=== PATIENT | male | born 1935 | race Caucasian/White ===

== ENCOUNTER 2017-04-14 08:18 | Emergency (ER) | payer OTHER, MEDICARE ==
[~2017-04-14] VITALS: Ht 182.9 cm; Wt 88.5 kg
--- NOTE | 2017-04-14 08:59 | ED HAND/WRIST INJURY COMPLAINT ---
History of Present Illness General Chief Complaint: General Adult Stated Complaint: INFECTED THUMB Source: patient, old records Exam Limitations: no limitations Vital Signs & Intake/Output Vital Signs & Intake/Output Vital Signs Date Time Temp Pulse Resp B/P B/P Pulse O2 O2 Flow FiO2 Mean Ox Delivery Rate 04/14 1047 97.2 72 20 124/80 95 Room Air 04/14 0831 96.8 70 20 121/76 95 Room Air Allergies Coded Allergies: Sulfa (Sulfonamide Antibiotics) (NAUSEA 04/14/17) Reconcile Medications Allopurinol 300 MG TABLET 1 TAB PO DAILY GOUT (Reported) Amlodipine Besylate 5 MG TABLET 1 TAB PO DAILY HEART (Reported) Aspirin (Aspirin*) 81 MG TAB.CHEW 1 TAB PO DAILY HEART HEALTH (Reported) Cephalexin (Keflex) 500 MG CAPSULE 1 CAP PO TID cellulitis Cyanocobalamin (Vitamin B-12) 1,000 MCG TABLET 1 TAB PO DAILY VITAMIN SUPPORT (Reported) Glutamine (L-Glutamine) 500 MG CAPSULE 1 CAP PO BID UNKNOWN (Reported) Ibuprofen 600 MG TABLET 1 TAB PO Q6PRN PRN pain with food Magnesium Oxide (Magnesium) 400 MG CAPSULE 1 CAP PO DAILY SUPPLEMENT ( Reported) Metoprolol Succinate 25 MG TAB 1 TAB PO DAILY HEART (Reported) Pravastatin Sodium 40 MG TABLET 1 TAB PO DAILY CHOLESTREROL (Reported) Pregabalin (Lyrica) 50 MG CAPSULE 1 CAP PO TID PAIN (Reported) Psyllium Husk (Metamucil) 3.4 GRAM/5.4 GRAM POWDER 1 TSP PO DAILY GI ( Reported) Ruxolitinib Phosphate (Jakafi) 5 MG TABLET 2 TAB PO BID BONE MARROW (Reported ) Triage Note: C/O PAIN, REDNESS AND SWELLING TO R THUMB X 2 DAYS, OCCURRED AFTER CUTTING HEDGES, STATES HE REMOVED A THORN FROM THUMB. Triage Nurses Notes Reviewed? yes Occurred: 2 days Duration: day(s):, constant, continues in ED, getting worse Timing: recent history Injury Environment: home Severity: moderate Pain/Injury Location: Right: 1st finger. Context: thorn Method of Injury: puncture wound Modifying Factors: Improves With: immobilization. Worsens With: movement. Associated Symptoms: swelling, redness, GCS 15 since, stiffness HPI: 2 days prior to admission patient was trimming bushes and got a thorn stuck in his right thumb. He removed the thorn. Since this time he has had increasing redness and swelling to his thumb. He denies fever chills nausea vomiting diarrhea abdominal pain chest pain shortness breath headache dysuria bleeding. He is RHD. Past History Travel History Traveled to [place] past 21 day No Medical History Any Pertinent Medical History? see below for history Neurological: peripheral neuropathy Blood Disorders: POLYCYTHEMIA VERA Surgical History Surgical History: non-contributory Psychosocial History What is your primary language Citizen Of The [place] Tobacco Use: Never used ETOH Use: denies use Family History Hx Contributory? No Review of Systems Review of Systems Constitutional: Reports: no symptoms. EENTM: Reports: no symptoms. Respiratory: Reports: no symptoms. Cardiovascular: Reports: no symptoms. GI: Reports: no symptoms. Genitourinary: Reports: no symptoms. Musculoskeletal: Reports: see HPI, joint pain, joint swelling. Skin: Reports: see HPI, dryness, rash. Neurological/Psychological: Reports: no symptoms. Hematologic/Endocrine: Reports: no symptoms. Immunologic/Allergic: Reports: no symptoms. All Other Systems: Reviewed and Negative Physical Exam Physical Exam General Appearance: well developed/nourished, alert, awake, anxious, mild distress Head: atraumatic, normal appearance Eyes: Bilateral: normal appearance, PERRL, EOMI. Ears, Nose, Throat: normal pharynx, normal ENT inspection, hearing grossly normal Neck: normal inspection, supple Cardiovascular/Respiratory: normal breath sounds, regular rate/rhythm Back: normal inspection, normal range of motion Shoulder Left: normal range of motion, normal inspection Shoulder Right: normal range of motion, normal inspection Elbow Left: normal range of motion, normal inspection Elbow Right: normal range of motion, normal inspection Forearm Left: normal range of motion, normal inspection Forearm Right: normal range of motion, normal inspection Wrist Left: normal range of motion, normal inspection Wrist Right: normal range of motion, normal inspection Hand Left: normal inspection, normal range of motion Hand Right: infection, limited range of motion, swelling, tender, 1st finger Reflexes: 2+: bicep (R), bicep (L). Neurologic/Tendon: normal sensation, normal motor functions, normal tendon functions Skin: intact, normal color, warm/dry Lymphatic: no anterior cervical opal Progress Differential Diagnosis: abscess, cellulitis Plan of Care: Orders Procedure Date/time Status BLOOD CULTURE 04/14 844 Active COMPREHENSIVE METABOLIC PANEL 06/14 0844 Active CBC WITHOUT DIFFERENTIAL 04/14 844 Complete Laboratory Tests 04/14/1715: CBC w Diff NO MAN DIFF REQ, RBC 4.56 L, MCV 89.4, MCH 29.8, RDW 18.6 H, MPV 9.2, Gran % 77.2 H, Lymphocytes % 9.9 L, Monocytes % 11.1 H, Eosinophils % 1.5, Basophils % 0.3, Absolute Granulocytes 6.6 H, Absolute Lymphocytes 0.8 L, Absolute Monocytes 0.9 H, Absolute Eosinophils 0.1, Absolute Basophils 0, PUBS MCHC 33.3 Microbiology 04/14 924 BLOOD: Blood Culture - RECD 04/14 915 BLOOD: Blood Culture - RECD Diagnostic Imaging: Viewed by Me: Radiology Read. Discussed w/RAD: Radiology Read. Radiology Impression: no acute abnormality, no fracture, no dislocation, no foreign body seen Departure Departure Time of Disposition: 1021 Disposition: HOME OR SELF CARE Condition: Stable Clinical Impression Primary Impression: Cellulitis of right thumb Referrals: ISRAEL DAS,FRED Call for plastic surgery follow up RAISA DAS,GRETEL Rainey (PCP/Family) Departure Forms: Customer Survey General Discharge Information Prescriptions: Current Visit Scripts Cephalexin (Keflex) 1 CAP PO TID #30 CAP Ibuprofen 1 TAB PO Q6PRN PRN pain #50 TAB with food
--- NOTE | 2017-04-14 09:13 | RADIOLOGY REPORT ---
EXAMINATION: XR FINGER, RIGHT CLINICAL INFORMATION: Right thumb cellulitis. Question foreign body. COMPARISON: None TECHNIQUE: Three views of the right hand first digit. FINDINGS: First digit soft tissue swelling is noted. No fracture or dislocation. Mild degenerative changes of the first carpometacarpal joint with joint space narrowing. Joint spaces are otherwise maintained. No erosion. No radiopaque foreign body. IMPRESSION: First digit soft tissue swelling. No radiopaque foreign body.
[2017-04-14 09:24] LABS: ABSOLUTE BASOPHIL COUNT 0 /CUMM (0.0-0.2); ABSOLUTE EOSINOPHIL COUNT 0.1 /CUMM (0.0-0.7); ABSOLUTE MONOCYTE COUNT 0.9 /CUMM (0.10-0.60); BASOPHIL % 0.3 % (0.0-2.0); GRANULOCYTE % 77.2 % (42.2-75.2); HEMATOCRIT 40.8 % (42-52); RED BLOOD CELL CT 4.56 /CUMM (4.70-6.10)
[2017-04-14 09:50] LABS: ABSOLUTE GRANULOCYTE CT 6.6 /CUMM (1.4-6.5); ABSOLUTE LYMPH COUNT 0.8 /CUMM (1.2-3.4); EOSINOPHIL % 1.5 % (0-5); MEAN CORPUSCULAR HGB 29.8 PG (27.0-31.0); MEAN CORPUSCULAR HGB CONC 33.3 G/DL (33.0-37.0); MEAN CORPUSCULAR VOLUME 89.4 FL (80.0-94.0); MEAN PLATELET VOLUME 9.2 FL (7.4-10.4); RBC DISTRIBUTION WIDTH 18.6 % (11.5-14.5); WHITE BLOOD CELL COUNT 8.5 /CUMM (4.8-10.8)
[2017-04-14 09:56] LABS: PLATELET COUNT 156 /CUMM (130-400)
[2017-04-14] MEDS ORDERED: PRAVASTATIN SOD40 M2 PO (09:58)
[2017-04-14] MEDS ORDERED: ALLOPURINOL300 M1 PO (09:58)
[2017-04-14] MEDS ORDERED: METOPROLOL SUCC25 M1 PO (09:58)
[2017-04-14] MEDS ORDERED: JAKAFI PO (09:58)
[2017-04-14] MEDS ORDERED: METAMUCIL660 GM PO (09:59)
[2017-04-14] MEDS ORDERED: L-GLUTAMINE500 M1 PO (09:59)
[2017-04-14] MEDS ORDERED: VITAMIN B-121000 MC3 PO (10:00)
[2017-04-14] MEDS ORDERED: MAGNESIUM400 M1 PO (10:00)
[2017-04-14] MEDS ORDERED: AMLODIPINE BESYL5 M1 PO (10:01)
[2017-04-14] MEDS ORDERED: LYRICA50 M1 PO (10:01)
[2017-04-14] MEDS ORDERED: ASPIRIN81 M4 PO (10:01)
[2017-04-14] MEDS ORDERED: KEFLEX500 M1 PO (10:26)
[2017-04-14] MEDS ORDERED: IBUPROFEN600 M1 PO (10:26)
[2017-04-14 10:47] VITALS: BP 124/80
== END 2017-04-14 10:49 ==
LOC: ERH 08:18
PROVIDERS: Emergency Medicine
DX: L03.011 Cellulitis of right finger (principal)
CPT/HCPCS: 73140-RT; 87040; 96365; 96375; J1885

== ENCOUNTER 2017-11-25 14:16 | Inpatient (IN) | payer OTHER, MEDICARE ==
[~2017-11-25] VITALS: Ht 182.9 cm; Wt 84.4 kg
[~2017-11-25 14:16] MED LIST: ALLOPURINOL300 M1 PO; AMLODIPINE BESYL5 M1 PO; ASPIRIN81 M4 PO; IBUPROFEN600 M1 PO; JAKAFI PO; KEFLEX500 M1 PO; L-GLUTAMINE500 M1 PO; LYRICA50 M1 PO; MAGNESIUM400 M1 PO; METAMUCIL660 GM PO; METOPROLOL SUCC25 M1 PO; PRAVASTATIN SOD40 M2 PO; VITAMIN B-121000 MC3 PO
[2017-11-25] MEDS ORDERED: ALPHA LIPOIC A200 M1 PO (17:54)
[2017-11-25] MEDS ORDERED: VITAMIN B COMP1 EACH PO (17:55)
[2017-11-25] MEDS ORDERED: VITAMIN D31000 UNI2 PO (17:56)
[2017-11-25] MEDS ORDERED: VITAMIN B-121000 MC3 PO (17:59)
--- NOTE | 2017-11-25 18:03 | ED INFLUENZA/URI COMPLAINT ---
History of Present Illness General Chief Complaint: Upper Respiratory Sx/Fever Stated Complaint: URI SENT BY URGENT CARE FOR A INFECTED LUNG Source: patient, family Exam Limitations: no limitations Vital Signs & Intake/Output Vital Signs & Intake/Output Vital Signs Date Time Temp Pulse Resp B/P B/P Pulse O2 O2 Flow FiO2 Mean Ox Delivery Rate 11/25 1916 95 11/25 1852 Nasal Cannula 11/25 1850 99.7 11/25 1840 99.7 81 18 127/71 91 Room Air 11/25 1530 100.5 92 18 105/67 91 Room Air Room Air Allergies Coded Allergies: Sulfa (Sulfonamide Antibiotics) (NAUSEA 04/14/17) duloxetine (URINARY FREQUENCY 11/25/17) Triage Note: PT TO ED WITH C/I URI , COUGH CONGESTION, FEVER AT HOME, WENT TO [facility] HAD CHR SENT TO ED R/O PNEUMONIA. Triage Nurses Notes Reviewed? yes Onset: Gradual Duration: day(s): Timing: multiple episodes today Severity: moderate Prior Episodes/Possible Cause: occassional episodes Associated Symptoms: cough, fever/chills, nasal drainage, sore throat HPI: patient is an 82 y/o male, PMH of polycythemia vera, HTN, HLD, and neuropathy, presenting from urgent care due to possible pneumonia on x-ray. PAtient states he has been coughing since wednesday with worsening sore throat and nasal discharge. the cough is not productive and the nasal discharge is clear and thin. patient had a fever of 101.5 at the urgent care. patient has taken OTC mucinex and robitussin for his symptoms with no relief of symptoms. patient denies chills, muscle aches, CP, SOB, head ache, dizziness, abdominal pain, N/V/ D, and dysuria. (Hussain MOSS,Gee) Reconcile Medications Allopurinol 300 MG TABLET 1 TAB PO DAILY GOUT (Reported) Alpha Lipoic Acid (Unknown Strength) CAPSULE (Unknown Dose) PO TID NEUROPATHY (Reported) Amlodipine Besylate 5 MG TABLET 1 TAB PO DAILY HEART (Reported) Aspirin (Aspirin*) 81 MG TAB.CHEW 1 TAB PO DAILY HEART HEALTH (Reported) Cholecalciferol (Vitamin D3) 1,000 UNIT TABLET 2 TAB PO DAILY SUPPLEMENT ( Reported) Cyanocobalamin (Vitamin B-12) 1,000 MCG TABLET 1 TAB PO DAILY SUPPLEMENT ( Reported) Glutamine (L-Glutamine) (Unknown Strength) CAPSULE (Unknown Dose) PO BID SUPPLEMENT (Reported) Magnesium Oxide (Magnesium) 400 MG CAPSULE 1 CAP PO DAILY SUPPLEMENT ( Reported) Metoprolol Succinate 25 MG TAB 1 TAB PO DAILY HEART (Reported) Pravastatin Sodium 40 MG TABLET 1 TAB PO DAILY CHOLESTREROL (Reported) Pregabalin (Lyrica) 50 MG CAPSULE 1 CAP PO QPM PAIN (Reported) Psyllium Husk (Metamucil) 3.4 GRAM/5.4 GRAM POWDER 1 TSP PO DAILY GI ( Reported) Ruxolitinib Phosphate (Jakafi) 5 MG TABLET 2 TAB PO BID BONE MARROW (Reported ) Vitamin B Complex 1 EACH CAPSULE 1 CAP PO DAILY SUPPLEMENT (Reported) (Franky Venegas DO ([facility])) Past History Travel History Traveled to [place] past 21 day No Medical History Any Pertinent Medical History? none Neurological: peripheral neuropathy EENT: NONE Cardiovascular: NONE Respiratory: NONE Gastrointestinal: NONE Hepatic: NONE Renal: NONE Musculoskeletal: NONE Psychiatric: NONE Endocrine: NONE Blood Disorders: POLYCYTHEMIA VERA Cancer(s): NONE DIRECTOR OF STUDENT AFFAIRS/Reproductive: NONE Surgical History Surgical History: non-contributory Psychosocial History What is your primary language [place] Tobacco Use: Quit >30 days ago ETOH Use: denies use Illicit Drug Use: denies illicit drug use Family History Hx Contributory? No (Gee Lockhart) Review of Systems Review of Systems Constitutional: Reports: no symptoms. EENTM: Reports: nasal congestion, throat pain. Respiratory: Reports: cough. Cardiovascular: Reports: no symptoms. GI: Reports: no symptoms. Genitourinary: Reports: no symptoms. Musculoskeletal: Reports: no symptoms. Skin: Reports: no symptoms. Neurological/Psychological: Reports: no symptoms. Hematologic/Endocrine: Reports: no symptoms. Immunologic/Allergic: Reports: no symptoms. All Other Systems: Reviewed and Negative (Gee Lockhart) Physical Exam Physical Exam General Appearance: well developed/nourished, no apparent distress, alert, awake Head: atraumatic, normal appearance Eyes: Bilateral: normal appearance, PERRL, EOMI. Ears, Nose, Throat: normal ENT inspection, moist mucous membrane, nasal drainage , pharyngeal erythema Neck: normal inspection, supple Respiratory: decreased breath sounds, rhonchi (with cough), desat to 85% upon ambulation Cardiovascular: regular rate/rhythm Peripheral Pulses: 2+ radial (R), 2+ radial (L) Gastrointestinal: soft, non-tender, no organomegaly Extremities: normal inspection, no edema Skin: intact, normal color, warm/dry Core Measures Sepsis Present: No Sepsis Focused Exam Completed? No (Gee Lockhart) Progress Differential Diagnosis: influenza, pneumonia, sinusitis, pharyngitis, pe, mi, bronchitis Plan of Care: Orders Procedure Date/time Status Regular Diet 11/26 B Active LACTIC ACID 11/25 2028 Active OXYGEN SETUP (GEN) 11/25 1948 Active Saline Lock 11/25 1948 Active Admit to inpatient 11/25 1948 Active Vital Signs 11/25 1948 Active Activity/Ambulation 11/25 1948 Active Code Status 11/25 1948 Active RAPID VIRAL INFLUENZA A 11/25 173 Complete BLOOD CULTURE 11/25 172 Active URINALYSIS 11/25 172 Active TROPONIN LEVEL 11/25 172 Complete LACTIC ACID 11/25 172 Complete COMPREHENSIVE METABOLIC PANEL 11/25 172 Complete CBC WITHOUT DIFFERENTIAL 11/25 1728 Complete EKG 11/25 172 Active Laboratory Tests 11/25/17 175: Anion Gap 17 H, Estimated GFR 53 L, BUN/Creatinine Ratio 22.3, Glucose 98, Lactic Acid 1.2, Calcium 9.4, Total Bilirubin 0.7, AST 32, ALT 45, Alkaline Phosphatase 71, Troponin I < 0.01, Total Protein 7.7, Albumin 5.0, Globulin 2.7, Albumin/Globulin Ratio 1.9, CBC w Diff NO MAN DIFF REQ, RBC 4.30 L, MCV 93.8, MCH 30.5, MCHC 32.5 L, RDW 19.5 H, MPV 11.1 H, Gran % 77.2 H, Lymphocytes % 7.7 L, Monocytes % 14.2 H, Eosinophils % 0.9, Basophils % 0, Absolute Granulocytes 6.7 H, Absolute Lymphocytes 0.7 L, Absolute Monocytes 1.2 H, Absolute Eosinophils 0.1, Absolute Basophils 0 Microbiology 11/25 1899 BLOOD: Blood Culture - RECD 11/25 1758 BLOOD: Blood Culture - RECD 11/25 1754 NASOPHARYN: Influenza Virus A & B Rapid Smear - COMP Diagnostic Imaging: Viewed by Me: Radiology Read. Discussed w/RAD: Radiology Read. Radiology Impression: PATIENT: IVORY PALACIOS PRESENT AGE: 82 PATIENT ACCOUNT NO: [id number] : 37 LOCATION: [facility] ORDERING PHYSICIAN: Gee MOSS SERVICE DATE: 11/25/17 EXAM TYPE : RAD - XRY-CHEST XRAY, TWO VIEWS EXAMINATION: CHEST 2 VIEWS CLINICAL INFORMATION: Cough. COMPARISON: 01/21/2012. TECHNIQUE: PA and lateral views of the chest were obtained. FINDINGS: The cardiac silhouette is not enlarged. The mediastinal and hilar contours are unremarkable. There are neither pleural effusions nor pneumothoraces. There is linear atelectasis or scarring at the left lung base. The lungs are mildly hyperinflated. There are no consolidations. The osseous structures are unremarkable. IMPRESSION: Linear atelectasis or scarring at the left lung base. No consolidations. DICTATED BY: Nilson Li MD DATE/TIME DICTATED:11/25/171823 ASSISTANT OFFSET PRESS OPERATOR:ALTON DATE/TIME TRANSCRIBED:11/25/171823 CONFIDENTIAL, DO NOT COPY WITHOUT APPROPRIATE AUTHORIZATION. <Electronically signed in Other Vendor System> SIGNED BY: Nilson Li MD 11/25/171828 Initial ED EKG: normal sinus rhythm, rate (78) (Gee Lockhart) Departure Departure Disposition: STILL A PATIENT Condition: Stable Clinical Impression Primary Impression: Hypoxia Secondary Impressions: Bronchitis Referrals: Javad Worthy MD (PCP/Family) Departure Forms: Customer Survey General Discharge Information Admission Note Spoke With: Candido Diaz MD Documentation of Exam: Documentation of any treatments & extenuating circumstances including Concerns Regarding Discharge (functional status, medication knowledge or non-compliance, living conditions, etc.) that warrant an admission rather than observation: Patient oxygen saturation drops to 85% on room air. No history of COPD. Patient will require IV antibiotics. Supplemental oxygen. IV steroids. Pulmonary consultation potentially. (Gee Lockhart) Admission Note Documentation of Exam: Documentation of any treatments & extenuating circumstances including Concerns Regarding Discharge (functional status, medication knowledge or non-compliance, living conditions, etc.) that warrant an admission rather than observation: PA/SHIP WIRER Co-Sign Statement Statement: ED Attending supervision documentation- [x] I saw and evaluated the patient. I have also reviewed all the pertinent lab results and diagnostic results. I agree with the findings and the plan of care as documented in the PA's/SHIP WIRER's documentation. [] I have reviewed the ED Record and agree with the PA's/SHIP WIRER's documentation. [] Additions or exceptions (if any) to the PAs/SHIP WIRER's note and plan are summarized below: [] (Franky Venegas DO ([facility]))
[2017-11-25 18:17] LABS: ABSOLUTE BASOPHIL COUNT 0 /CUMM (0.0-0.2); ABSOLUTE EOSINOPHIL COUNT 0.1 /CUMM (0.0-0.7); ABSOLUTE GRANULOCYTE CT 6.7 /CUMM (1.4-6.5); ABSOLUTE LYMPH COUNT 0.7 /CUMM (1.2-3.4); ABSOLUTE MONOCYTE COUNT 1.2 /CUMM (0.10-0.60); BASOPHIL % 0 % (0.0-2.0); EOSINOPHIL % 0.9 % (0-5); GRANULOCYTE % 77.2 % (42.2-75.2); HEMATOCRIT 40.4 % (42-52); MEAN CORPUSCULAR HGB 30.5 PG (27.0-31.0); MEAN CORPUSCULAR HGB CONC 32.5 G/DL (33.0-37.0); MEAN CORPUSCULAR VOLUME 93.8 FL (80.0-94.0); MEAN PLATELET VOLUME 11.1 FL (7.4-10.4); PLATELET COUNT 202 /CUMM (130-400); RBC DISTRIBUTION WIDTH 19.5 % (11.5-14.5); WHITE BLOOD CELL COUNT 8.6 /CUMM (4.8-10.8)
--- NOTE | 2017-11-25 18:29 | RADIOLOGY REPORT ---
EXAMINATION: CHEST 2 VIEWS CLINICAL INFORMATION: Cough. COMPARISON: 01/21/2012. TECHNIQUE: PA and lateral views of the chest were obtained. FINDINGS: The cardiac silhouette is not enlarged. The mediastinal and hilar contours are unremarkable. There are neither pleural effusions nor pneumothoraces. There is linear atelectasis or scarring at the left lung base. The lungs are mildly hyperinflated. There are no consolidations. The osseous structures are unremarkable. IMPRESSION: Linear atelectasis or scarring at the left lung base. No consolidations.
--- NOTE | 2017-11-25 20:11 | History & Physical ---
Odessa Cassidy MDm 11/25/172010: General Information and HPI MD Statement: I have seen and personally examined IVORY PALACIOS and documented this H&P. The patient is a 82 year old M who presented with a patient stated chief complaint of [cough]. Source of Information: patient Exam Limitations: no limitations History of Present Illness: Patient is a 82-year-old male with past medical history of hypertension, hyperlipidemia, polycythemia vera, gout and peripheral neuropathy. He is presenting to [facility] ED on 11/25 with complain of ongoing cough since Wednesday. The patient was in usual state of health until Wednesday when he started developing a cough which has been lingering on ever since. The patient reports coughing during the day and night. It's a dry hacking cough without any sputum production. He unable to sleep because of cough. He denies any fevers or chills. He denies any sore throat, postnasal drip, chest pain, or nasal discharge. He also denies any sinus tenderness. He tried [id number] Robitussin for 2 days and later tried Mucinex as well with no relief. Today patient presented to urgent care with these symptoms. He was found to have fever of 101. They did a chest x-ray and send him to [facility] for evaluation of possible pneumonia. Patient denies any sick contacts. He is up to date with flu and pneumonia vaccinations. The patient was diagnosed with polycythemia vera 20 years ago and is being treated with Ruxolitinib Phosphate (Jakafi). Patient underwent InterStim placement on the right sacral nerves S3 for urge incontinence refractory to anticholinergics in 2013 Allergies/Medications Allergies: Coded Allergies: Sulfa (Sulfonamide Antibiotics) (NAUSEA 04/14/17) duloxetine (URINARY FREQUENCY 11/25/17) Home Med list Allopurinol 300 MG TABLET 1 TAB PO DAILY GOUT (Reported) Alpha Lipoic Acid 200 MG TABLET 600 MG PO DAILY NEUROPATHY (Reported) Amlodipine Besylate 5 MG TABLET 1 TAB PO DAILY HEART (Reported) Aspirin (Aspirin*) 81 MG TAB.CHEW 1 TAB PO DAILY HEART HEALTH (Reported) Benzonatate 100 MG CAPSULE 100 MG PO TID PRN cough Chloraseptic (Phenaseptic) 1.4 % SPRAY 2 SPRAY EXT Q2P PRN PAIN Cholecalciferol (Vitamin D3) 1,000 UNIT TABLET 2 TAB PO DAILY SUPPLEMENT ( Reported) Cyanocobalamin (Vitamin B-12) 1,000 MCG TABLET 1 TAB PO DAILY SUPPLEMENT ( Reported) Glutamine (Endari) 5 GRAM POWD.PACK 1 TSP PO BID NEUROPATHY (Reported) Guaifenesin 100 MG/5 ML LIQUID 10 ML PO Q6P PRN COUGH Magnesium Oxide (Magnesium) 400 MG CAPSULE 1 CAP PO DAILY SUPPLEMENT ( Reported) Metoprolol Succinate 25 MG TAB 1 TAB PO DAILY HEART (Reported) Pravastatin Sodium 40 MG TABLET 1 TAB PO DAILY CHOLESTREROL (Reported) Pregabalin (Lyrica) 50 MG CAPSULE 1 CAP PO QPM PAIN (Reported) Psyllium Husk (Metamucil) 3.4 GRAM/5.4 GRAM POWDER 1 TSP PO DAILY GI ( Reported) Ruxolitinib Phosphate (Jakafi) 5 MG TABLET 2 TAB PO BID BONE MARROW (Reported ) Vitamin B Complex 1 EACH CAPSULE 1 CAP PO DAILY SUPPLEMENT (Reported) Compliance With Home Meds: GOOD Past History Travel History Traveled to [place] past 21 day No Medical History Neurological: peripheral neuropathy EENT: NONE Cardiovascular: hypertension, hyperlipidemia Respiratory: NONE Gastrointestinal: NONE Hepatic: NONE Renal: NONE Musculoskeletal: gout Psychiatric: NONE Endocrine: NONE Blood Disorders: POLYCYTHEMIA VERA Cancer(s): NONE HOTBED LEVER OPERATOR/Reproductive: NONE Surgical History Surgical History: hernia repair-inguinal Past Family/Social History Family History Relations & Conditions if any FATHER (Lung cancer). Psychosocial History Where do you live? Home Who Do You Live With? spouse Services at Home: None Primary Language: South Korean Smoking Status: Former Smoker ETOH Use: denies use Illicit Drug Use: denies illicit drug use Functional Ability ADLs Independent: dressing, eating, toileting, bathing. Ambulation: independent IADLs Independent: shopping, housework, finances, food prep, telephone, transportation , medication admin. Review of Systems Review of Systems Constitutional: Reports: see HPI. Denies: fever, weakness. EENTM: Reports: no symptoms. Cardiovascular: Reports: orthopena, palpitations, syncope. Denies: chest pain. Respiratory: Reports: cough. Denies: hemoptysis, orthopnea, short of breath, sputum production, stridor, wheezing. GI: Reports: no symptoms. Genitourinary: Reports: no symptoms. Musculoskeletal: Reports: no symptoms. Exam & Diagnostic Data Last 24 Hrs of Vital Signs/I&O Vital Signs Date Time Temp Pulse Resp B/P B/P Pulse O2 O2 Flow FiO2 Mean Ox Delivery Rate 11/25 2015 99.0 76 18 110/62 95 Nasal 2.0L Cannula 11/25 1916 95 11/25 1852 Nasal Cannula 11/25 1849 99.7 11/25 184 99.7 81 18 127/71 91 Room Air 11/25 1530 100.5 92 18 105/67 91 Room Air Room Air Intake & Output 11/25 1600 11/25 0800 11/25 0000 Intake Total Output Total Balance Patient 186 lb Weight Weight Shelley Lift Measurement Method Physical Exam General Appearance Alert, Oriented X3, Cooperative, Mild Distress Skin No Rashes HEENT Atraumatic, PERRLA, EOMI, Mucous Membr. moist/pink, pharangeal erythema Neck Supple, No LAD Lymphatic Cervical nl Cardiovascular Normal S1, Normal S2, No Murmurs Lungs Clear to Auscultation, Normal Air Movement Abdomen Normal Bowel Sounds, Soft, No Tenderness, No Hepatospenomegaly Neurological Normal Speech Last 24 Hrs of Labs/Juvencio: Laboratory Tests 11/25/172014: Lactic Acid Pending 11/25/171758: Anion Gap 17 H, Estimated GFR 53 L, BUN/Creatinine Ratio 22.3, Glucose 98, Lactic Acid 1.2, Calcium 9.4, Total Bilirubin 0.7, AST 32, ALT 45, Alkaline Phosphatase 71, Troponin I < 0.01, Total Protein 7.7, Albumin 5.0, Globulin 2.7, Albumin/Globulin Ratio 1.9, CBC w Diff NO MAN DIFF REQ, RBC 4.30 L, MCV 93.8, MCH 30.5, MCHC 32.5 L, RDW 19.5 H, MPV 11.1 H, Gran % 77.2 H, Lymphocytes % 7.7 L, Monocytes % 14.2 H, Eosinophils % 0.9, Basophils % 0, Absolute Granulocytes 6.7 H, Absolute Lymphocytes 0.7 L, Absolute Monocytes 1.2 H, Absolute Eosinophils 0.1, Absolute Basophils 0 Microbiology 11/25 1899 BLOOD: Blood Culture - RECD 11/25 1758 BLOOD: Blood Culture - RECD 11/25 1754 NASOPHARYN: Influenza Virus A & B Rapid Smear - COMP Diagnostic Data CXR Results FINDINGS: The cardiac silhouette is not enlarged. The mediastinal and hilar contours are unremarkable.There are neither pleural effusions nor pneumothoraces. There is linear atelectasis or scarring at the left lung base. The lungs are mildly hyperinflated. There are no consolidations. The osseous structures are unremarkable. IMPRESSION: Linear atelectasis or scarring at the left lung base. No consolidations. Assessment/Plan Assessment: Patient is a 82-year-old male with past medical history of hypertension, hyperlipidemia, polycythemia vera, gout and peripheral neuropathy. He is presenting to [facility] ED on 11/25 with complain of ongoing cough since Wednesday. -VS Tmax 100.5, 92, 18, 105/67, 91% on RA -Pertinent labs: WBC count WNL l. BUN 29 creatinine 1.3 (baseline 1.3) AG 17, lactic acid normal rapid flu negative. -Imaging findings dictated above -In ED patient got his oxygen saturation saturation to 87% on ambulation. He received 125 mg of methylprednisone, Tylenol, DuoNeb's, ceftriaxone and azithromycin. The patient is being admitted to general medicine floor and is being treated and evaluated for following conditions #Acute hypoxemic respiratory failure secondary to acute bronchitis. Rule out pneumonia The patient is presenting with cough for almost past 5 days. No sputum production nasal drip or sinus tenderness. He had a fever of 101 at urgent care. He does not have a white count. Patient is on ruxolitinib so he might not build up appropriate response. Pneumonia needs to be ruled out. And patient should be treated for CAP if there is slight suspicion. -Monitor fever and WBC curve -Oxygen supplementation to keep saturation above 92% -TRC/ Duonebs -Oral Steriods rapid 5 day taper -Robitussin for cough -CT chest without contrast to rule out any infiltrate -Follow-up blood cultures -Sputum cultures -Urinary strep and Legionella antigen. -Continue ceftriaxone and azithromycin #Anemia likely 2/2 to Ruxolitinib presenting with H/H stable -Continue to monitorpravastatin, amlodipine, metoprolol, aspirin, allopurinol and Lyrica. #Chronic medical conditions hyperlipidemia, hypertension, gout, neuropathy continue #FC/subcutaneous heparin for DVT prophylaxis/heart healthy diet. As Ranked By This Provider Problem List: 1. Hypoxia 2. Bronchitis Core Measures/Misc (07/18) Acute Coronary Syndrome ACS Diagnosis: No Congestive Heart Failure Congestive Heart Failure Diagnosis No Cerebrovascular Accident CVA/TIA Diagnosis: No VTE (View Protocol) VTE Risk Factors Age>40 No Mechanical VTE Prophylaxis d/t N/A MechProphylax Ordered No VTE Pharm Prophylaxis d/t NA PharmProphylax ordered Sepsis (View protocol) Sepsis Present: No Roberta Loyola 11/25/175: Resident Review Statement Resident Statement: discussed with development intern Other Findings: 82-year-old man with past medical history of hypertension, polycythemia vera diagnosed 20 years ago on Kinase inhibitor (ruxolitinib), neuropathy, hyperlipidemia and gout resented to ER with complaint of nonproductive hacking cough 4 days. He denies any fever, chills, sinus or chest congestion, postnasal drip, runny nose, ear symptoms, sore throat, chest pain or discomfort, nausea, vomiting, abdominal pain, diarrhea or constipation. No urinary symptoms. No dizziness or lightheadedness. He tried Robitussin and Mucinex DM at home without much relief. He went to a walk-in clinic today and had a chest x-ray that was suspicious for pneumonia. He was advised to go to ER for further evaluation and treatment. He denies any sick contacts around. He is a former smoker. Quit 50 years ago. Up-to-date flu and pneumonia vaccine. Vitals on admission: Temperature 100.5, pulse 92, respiratory rate 18, blood pressure 1056/67 and oxygen saturation 91% on room air. Oxygen saturation dropped on ambulation to 83-87% on room air. Pertinent physical exam findings: Pharyngeal erythema. No cervical lymphadenopathy. No sinus tenderness. Lungs clear bilaterally. Pertinent labs: WBC count normal. BUN/creatinine 23/1.3, AG 17, lactic acid normal rapid flu negative. CXR: Linear atelectasis or scarring at the left lung base. No consolidations. CT chest wo IV contrast: Bibasilar linear atelectasis or scarring. No consolidations. 7 mm right lower lobe pulmonary nodule. In ER he was given respiratory treatment, IV steroids, ceftriaxone and azithromycin. Assessment and plan 82-year-old man with past medical history of hypertension, polycythemia vera diagnosed 20 years ago on Kinase inhibitor (ruxolitinib), neuropathy, hyperlipidemia and gout. We will admit him on general medicine floor for possible viral bronchitis. No evidence of PNA on CT chest. We will continue TRC nebs. Continue supplemental oxygen and taper down to keep oxygen saturation more than 92%. Continue azithromycin. Rapid taper of steroids. Continue Robitussin. Follow-up blood cultures. Continue all his home medications. Pain management pathway. DVT prophylaxis. Full code Joe DAS, [facility] 11/25/17 8615: Attending MD Review Statement Attending Statement Attending MD Statement: examined this patient, discuss w/resident/PA/SPREAD CUTTER, agreed w/resident/PA/SPREAD CUTTER, reviewed images, amended to note Attending Assessment/Plan: 82 yo M with h/o polycythemia vera on Jakafi (Ruxolitinib, follows Dr. Min at [place]), HTN, gout, neuropathy, is here with 4-day h/o dry hacking cough, congestion and resultant 'burning in the throat'. He tried OTC robitussin and mucinex DM without much relief. He went to the [facility] walk-in, noted to have a fever of 101.5, and a CXR suspicious for pneumonia so he was sent to ER for further evaluation. Flu and pneumonia vaccines+. No sick contacts. No previous recurrent pneumonias. PMH: CKD stage 3, Skipped heart beat (follows [facility]), Urge incontinence s /p stimulator placement but not in use at present. Vitals: Tmax 100.5, HR 80-90's, BP 127/71, sats 91% RA --> 95% on 2L. Patient dropped sats to 83% on RA on ambulation --> 90% on RA at rest. Exam: AAO, in mild respiratory distress, oropharyngeal erythema+. Chest few basilar rhonchi but otherwise clear on exam, Heart S1S2 regular. Labs: no leukocytosis, AG 17, BUN 29, creat 1.3 (baseline), lactic acid 1.3, trop neg. Rapid flu neg. CXR: linear atelectasis or scarring at left lung base, no consolidations. EKG: sinus rhythm, PVCs+. CT chest: bibasilar linear atelectasis or scarring, no consolidations. RLL pulmonary nodule. Assessment and plan: 1. Acute hypoxic respiratory failure 2. Acute bronchitis 3. No evidence of pneumonia on CT 4. H/o polycythemia vera on Ruxolitinib - Admit to general medicine - TR nebs, incentive spirometry - Sputum culture, urine legionella and strep Ag - IV solumedrol 125 mg given in ER, will do rapid prednisone taper from AM - IV ceftriaxone and azithro given in the ER - Given no evidence of pneumonia on CT, will continue only azithro - Check ambulatory sats, O2 supplementation to keep sats > 92% - Add robitussin as needed - Resume home meds DVT ppx Hep SC. Full code.
[2017-11-25] MEDS ORDERED: ALPHA LIPOIC A200 M2 PO (20:53)
[2017-11-25] MEDS ORDERED: ENDARI5 GM PO (20:55)
--- NOTE | 2017-11-25 22:54 | CT SCAN REPORT ---
EXAMINATION: CT CHEST WITHOUT CONTRAST CLINICAL INFORMATION: Hypoxia. COMPARISON: November 25, 2017. TECHNIQUE: Contiguous axial thin section helical images of the chest were performed without contrast. The data set was reformatted in the coronal and sagittal planes and reviewed on an independent workstation. DLP: 277 mGy-cm. FINDINGS: The heart is of normal size. There is no pericardial effusion. There is neither mediastinal, hilar nor axillary lymphadenopathy. There are no chest wall masses. Review of lung windows demonstrates that there are neither pleural effusions nor pneumothoraces. There are no consolidations. There is basilar linear atelectasis or scarring. There is a 7 mm nodule within the right lower lobe on image [id number]. Images of the upper abdomen demonstrate that the liver is of normal size and attenuation without focal lesions. Normal adrenal glands are identified. Bone windows: Neither sclerotic nor lytic bone lesions are identified. IMPRESSION: Bibasilar linear atelectasis or scarring. No consolidations. 7 mm right lower lobe pulmonary nodule. Various management parameters for solitary pulmonary nodules are in the literature. According to the Fleischner Society, recommendations for pulmonary nodules are as follows: Nodule size < or = to 4 mm in LOW RISK PATIENTS: No follow up needed. Nodule size < or = to 4 mm in HIGH RISK PATIENTS: Follow up CT at 12 months; if unchanged, no further follow up. Nodule size > 4-6 mm in LOW RISK PATIENTS: Follow up CT at 12 months; if unchanged, no further follow up. Nodule size > 4-6 mm in HIGH RISK PATIENTS: Initial follow up CT at 6-12 months, then at 18-24 months if no change. Nodule size > 6-8 mm in LOW RISK PATIENTS: Initial follow up CT at 6-12 months, then at 18-24 months if no change. Nodule size > 6-8 mm in HIGH RISK PATIENTS: Initial follow up CT at 3-6 months, then 9-12 months and 24 months if no change. Nodule size > 8 mm in LOW RISK PATIENTS: Follow up CT at around 3, 9, and 24 months, dynamic contrast-enhanced CT, PET, and/or biopsy. Nodule size > 8 mm in HIGH RISK PATIENTS: Same as for low-risk patients.
--- NOTE | 2017-11-25 22:58 | Admission Certification ---
Admission Certification Certification Statement - As attending physician, I certify that at the time of - admission, based on clinical presentation, severity of - symptoms, need for further diagnostic testing and - therapeutic interventions, and risk of adverse outcomes - without in-hospital treatment, in my clinical assessment, - this patient requires an acute hospital stay for a minimum - of two nights or longer. I have also considered psychsocial - factors such as support system, advanced age, financial - issues, cognitive issues, and failed out-patient treatments, - past re-admission history, safety of patient, and lack of - compliance as applicable. Specific rationale supporting this admission is: Acute hypoxic respiratory failure, bronchitis.
[2017-11-26 05:29] VITALS: BP 110/62
--- NOTE | 2017-11-26 07:19 | PN- Housestaff ---
Александр DAS,Natacha 11/26/17 0719: Subjective Follow-up For: Acute hypoxemic respiratory failure secondary to acute bronchitis. Polycythemia Subjective: Medicine and examined at bedside, he continues to complain of sore throat and a dry cough, he denies nausea vomiting chest pain, fever or chills Review of Systems Constitutional: Denies: no symptoms. Cardiovascular: Denies: no symptoms. Respiratory: Reports: cough. Denies: short of breath, sputum production. Gastrointestinal: Denies: no symptoms. Genitourinary: Denies: no symptoms. Musculoskeletal: Denies: no symptoms. Skin: Denies: no symptoms. Objective Last 24 Hrs of Vital Signs/I&O Vital Signs Date Time Temp Pulse Resp B/P B/P Pulse O2 O2 Flow FiO2 Mean Ox Delivery Rate 11/26 1106 Nasal 2.0L Cannula 11/26 0918 68 112/64 11/26 0918 68 112/64 11/26 0800 94 Nasal 2.0L Cannula 11/26 0529 97.8 64 20 110/62 94 Nasal 2.0L Cannula 11/25 2234 Nasal 2.0L Cannula 11/25 2015 99.0 76 18 110/62 95 Nasal 2.0L Cannula 11/25 1916 95 11/25 1852 Nasal Cannula 11/25 1850 99.7 11/25 1840 99.7 81 18 127/71 91 Room Air 11/25 1530 100.5 92 18 105/67 91 Room Air Room Air Intake & Output 11/26 1600 11/26 0800 11/26 0000 Intake Total 350 Output Total 250 Balance -250 350 Intake, IV 250 Intake, Oral 100 Output, Urine 250 Patient 186 lb Weight Physical Exam General Appearance: Alert, Oriented X3, Cooperative, No Acute Distress Neck: Supple, No JVD, No thryomegaly Cardiovascular: Normal S1, Normal S2, No Murmurs Lungs: bilateral rales Abdomen: Normal Bowel Sounds ( bilateral radials and palpita), Soft, No Tenderness Neurological: Normal Speech, Strength at 5/5 X4 Ext, Normal Tone Extremities: No Clubbing, No Cyanosis, No Edema Assessment/Plan Assessment: 82-year-old male with past medical history of hypertension, hyperlipidemia, polycythemia vera, gout and peripheral neuropathy. He is presenting to [place] ED on 11/25 with complain of ongoing cough since Wednesday. In ED patient got his oxygen saturation saturation to 87% on ambulation. He received 125 mg of methylprednisone, Tylenol, DuoNeb's, ceftriaxone and azithromycin. Acute hypoxemic respiratory failure secondary to acute bronchitis Continue to monitor on general medicine floor Continue prednisone taper for 5 days Blood culture, urine for strep pneumonia and legionella was negative Continue azithromycin obtain an throat culture and rapid strep Start Chloraseptic spray for sore throat Start Tesslon when necessary for cough Chest physiotherapy TRC/NEBS Oxygen supplementation to keep oxygen saturation above 92 #Chronic medical conditions including hyperlipidemia, hypertension, gout, Continue home meds: pravastatin, amlodipine, metoprolol, aspirin, allopurinol and Lyrica. History of polycythemia: continue home dose of Ruxolitinib Full code DVT prophylaxis with subcutaneous heparin Regular diet Problem List: 1. Bronchitis Pain Ratin Pain Location: N/A Pain Goal: Remain pain free Pain Plan: pain pathway Tomorrow's Labs & Rationales: cbc bep DVT/Prophylaxis: mechanical, pharmacological Heath Knowles MD 11/26/17 1124: Attending MD Review Statement Attending Statement Attending MD Statement: examined this patient, discuss w/resident/PA/SHEET METAL APPRENTICE, agreed w/resident/PA/SHEET METAL APPRENTICE, reviewed EMR data (avail) Attending Assessment/Plan: 82M PMH polycythemia vera on Jakafi (Ruxolitinib, follows Dr. Min at [place]), HTN, gout presenting with several days of worsening cough, chest congestion, and sore throat, found to be hypoxic to 85% on room air in ED, with CT chest negative for pneumonia, negative influenza swab. Former smoker but quit >50 years ago. Patient still with cough, no sputum production, still complaining of sore throat. He denies dyspnea at rest or with exertion. Rhonchi on lung exam bilaterally R>L. Requiring 2L NC. 1. Acute bronchitis 2. Acute hypoxemic respiratory failure 3. Polycythemia vera Plan - Continue on general medicine - Continue Prednisone and Azithromycin - Send throat culture with rapid strep - Start Chloraseptic spray for sore throat - Start Tessalon perles PRN for cough - Follow sputum cultures and antigen studies - Continue home medications - Chest physiotherapy - DVT PPx
[2017-11-26 13:51] VITALS: BP 122/70
[2017-11-26 22:21] VITALS: BP 110/58
[2017-11-27 06:32] VITALS: BP 120/70
[2017-11-27 09:05] LABS: ABSOLUTE BASOPHIL COUNT 0 /CUMM (0.0-0.2); ABSOLUTE EOSINOPHIL COUNT 0 /CUMM (0.0-0.7); ABSOLUTE GRANULOCYTE CT 10.2 /CUMM (1.4-6.5); ABSOLUTE LYMPH COUNT 0.5 /CUMM (1.2-3.4); ABSOLUTE MONOCYTE COUNT 1.4 /CUMM (0.10-0.60); BASOPHIL % 0.2 % (0.0-2.0); EOSINOPHIL % 0.1 % (0-5); GRANULOCYTE % 84.2 % (42.2-75.2); MEAN CORPUSCULAR HGB 30.6 PG (27.0-31.0); MEAN CORPUSCULAR VOLUME 92.8 FL (80.0-94.0); MEAN PLATELET VOLUME 10.9 FL (7.4-10.4); PLATELET COUNT 197 /CUMM (130-400); RBC DISTRIBUTION WIDTH 19.2 % (11.5-14.5); RED BLOOD CELL CT 3.61 /CUMM (4.70-6.10); WHITE BLOOD CELL COUNT 12.1 /CUMM (4.8-10.8)
--- NOTE | 2017-11-27 09:13 | PN- Housestaff ---
[place] 11/27/17 0913: Subjective Follow-up For: Acute hypoxemic respiratory failure secondary to acute bronchitis. Polycythemia Subjective: No overnight events. Patient remained afebrile and appears seen and examined this morning. Patient reported having dry cough. He also reported that he is feeling tired. Patient denied any chest pain, short of breath, nausea, vomiting , abdominal pain dysuria. Patient is using 2 L of oxygen and maintaining saturation 96%. Review of Systems Constitutional: Reports: weakness. EENTM: Reports: no symptoms. Cardiovascular: Reports: no symptoms. Respiratory: Reports: cough. Gastrointestinal: Reports: no symptoms. Genitourinary: Reports: no symptoms. Musculoskeletal: Reports: no symptoms. Neurological/Psychological: Reports: no symptoms. Objective Last 24 Hrs of Vital Signs/I&O Vital Signs Date Time Temp Pulse Resp B/P B/P Pulse O2 O2 Flow FiO2 Mean Ox Delivery Rate 11/27 0632 97.7 66 20 120/70 96 11/27 0000 95 Nasal 2.0L Cannula 11/27 0000 95 Nasal 2.0L Cannula 11/26 2221 98.0 78 18 110/58 94 Nasal 2.0L Cannula 11/26 1615 93 Nasal 2.0L Cannula 11/26 1600 94 Nasal 2.0L Cannula 11/26 1600 88 Nasal 1.0L Cannula 11/26 1351 97.9 73 20 122/70 93 Nasal 2.0L Cannula 11/26 1106 Nasal 2.0L Cannula Intake & Output 11/27 1600 11/27 0800 11/27 0000 Intake Total 300 610 Output Total 400 Balance 300 210 Intake, Oral 300 610 Output, Urine 400 Physical Exam General Appearance: Alert, Oriented X3, Cooperative Skin Temp/Moisture Exam: Warm/Dry Sepsis Skin Exam (color): Normal for Ethnicity HEENT: Atraumatic, PERRLA, EOMI Neck: Supple Cardiovascular: Normal S1, Normal S2 Lungs: Clear to Auscultation Abdomen: Soft, No Tenderness Neurological: Normal Speech, Strength at 5/5 X4 Ext, Normal Tone, Sensation Intact Extremities: No Edema Assessment/Plan Assessment: 82-year-old male with past medical history of hypertension, hyperlipidemia, polycythemia vera, gout and peripheral neuropathy. [facility] with complain of ongoing cough since Wednesday. In ED patient got his oxygen saturation saturation to 87% on ambulation. He received 125 mg of methylprednisone, Tylenol, DuoNeb's, ceftriaxone and azithromycin. Acute hypoxemic respiratory failure secondary to acute bronchitis: -Oxygen supplementation to keep oxygen saturation above 92 -Continue prednisone taper for 5 days -Blood culture, urine for strep pneumonia and legionella was negative -Continue azithromycin iv 5 days. -continue Chloraseptic spray for sore throat -continue Tesslon when necessary for cough -Chest physiotherapy -TRC/NEBS -We will follow throat culture and rapid strep test results. Chronic medical conditions including hyperlipidemia, hypertension, gout: Continue home meds: pravastatin, amlodipine, metoprolol, aspirin, allopurinol and Lyrica. History of polycythemia: continue home dose of Ruxolitinib Full code DVT prophylaxis with subcutaneous heparin Regular diet Problem List: 1. Bronchitis 2. Hypoxia Pain Ratin Pain Location: none Pain Goal: Remain pain free Pain Plan: tylenol for mild pain Tomorrow's Labs & Rationales: cbc/bep Heath Knowles MD 11/27/17 1226: Attending MD Review Statement Attending Statement Attending MD Statement: examined this patient, discuss w/resident/PA/DECISION SUPPORT ANALYST, agreed w/resident/PA/DECISION SUPPORT ANALYST, reviewed EMR data (avail) Attending Assessment/Plan: 82M PMH polycythemia vera on Jakafi (Ruxolitinib, follows Dr. Min at [place]), HTN, gout presenting with several days of worsening cough, chest congestion, and sore throat, found to be hypoxic to 85% on room air in ED, with CT chest negative for pneumonia, negative influenza swab. Former smoker but quit >50 years ago. Patient still with cough, no sputum production, still complaining of sore throat , but all this is improving. He denies dyspnea at rest or with exertion. Rhonchi on lung exam bilaterally R>L. Requiring 2L NC. 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 He has taken Lyrica in the past but is only able to at night due to dizziness. 1. Acute bronchitis 2. Acute hypoxemic respiratory failure 3. Polycythemia vera Plan - Continue on general medicine - Start Capsaicin cream for legs - Continue Lyrica - Continue Prednisone and Azithromycin - Continue Chloraseptic and Tessalon Perles - Follow sputum cultures and antigen studies - Continue home medications - Chest physiotherapy - DVT PPx
--- NOTE | 2017-11-27 09:22 | Discharge Summary ---
Visit Information Visit Dates Admission Date: 11/25/17 Discharge Date: 11/28/17 Hospital Course Course Attending Physician: Heath Knowles MD Primary Care Physician: Zaynab DAS,Javad Hospital Course: 82-year-old male with past medical history of hypertension, hyperlipidemia, polycythemia vera, gout and peripheral neuropathy. He is presenting to [facility] ED on 11/25 with complain of ongoing cough since Wednesday. In ED patient got his oxygen saturation saturation to 87% on ambulation. He received 125 mg of methylprednisone, Tylenol, DuoNeb's, ceftriaxone and azithromycin. CT chest: Bibasilar linear atelectasis or scarring. No consolidations. 7 mm right lower lobe pulmonary nodule. Various management parameters for solitary pulmonary nodules are in the literature. According to the Fleischner Society, recommendations for pulmonary nodules are as follows: Nodule size < or = to 4 mm in LOW RISK PATIENTS: No follow up needed. Nodule size < or = to 4 mm in HIGH RISK PATIENTS: Follow up CT at 12 months; if unchanged, no further follow up. Nodule size > 4-6 mm in LOW RISK PATIENTS: Follow up CT at 12 months; if unchanged, no further follow up. Nodule size > 4-6 mm in HIGH RISK PATIENTS: Initial follow up CT at 6-12 months, then at 18-24 months if no change. Nodule size > 6-8 mm in LOW RISK PATIENTS: Initial follow up CT at 6-12 months, then at 18-24 months if no change. Nodule size > 6-8 mm in HIGH RISK PATIENTS: Initial follow up CT at 3-6 months, then 9-12 months and 24 months if no change. Nodule size > 8 mm in LOW RISK PATIENTS: Follow up CT at around 3, 9, and 24 months, dynamic contrast-enhanced CT, PET, and/or biopsy. Nodule size > 8 mm in HIGH RISK PATIENTS: Same as for low-risk patients. Acute hypoxemic respiratory failure secondary to acute bronchitis: -Oxygen supplementation to keep oxygen saturation above 92 -Treated with prednisone taper for 5 days -Blood culture, urine for strep pneumonia and legionella was negative -Patient was discharged on azithromycin completed a five-day course -Was treated by Chloraseptic spray for sore throat, Tesslon when necessary for cough -Chest physiotherapy -TRC/NEBS Solitary lung nodule: 7 mm right lower lobe pulmonary nodule. follow up with PCP as outpatient Chronic medical conditions including hyperlipidemia, hypertension, gout: Continue home meds: pravastatin, amlodipine, metoprolol, aspirin, allopurinol and Lyrica. History of polycythemia: continue home dose of Ruxolitinib Full code DVT prophylaxis with subcutaneous heparin Regular diet Allergies: Coded Allergies: Sulfa (Sulfonamide Antibiotics) (NAUSEA 04/14/17) duloxetine (URINARY FREQUENCY 11/25/17) Disposition Summary Disposition Principal Diagnosis: Acute hypoxic resp failure due to bronchitis Additional Diagnosis: Polycythemia Discharge Disposition: home or self care Discharge Instructions General Discharge Information Code Status: Full Code Patient's Diet: Heart healthy Patient's Activity: As tolerated Follow-Up Instructions/Appts: 1please follow-up with your PCP in 1 week of discharge 2please follow-up with PCP for solitary lung nodule 3please follow-up with her sole ruffer in 1 week of discharge Medications at Discharge Discharge Medications: Continue taking these medications: Ruxolitinib Phosphate (Jakafi) 5 MG TABLET 2 Tablet ORAL TWICE DAILY Qty = 120 Comments: Last Taken: 11/28/17 Time: 9:00 AM Pravastatin Sodium (Pravastatin Sodium) 40 MG TABLET 1 Tablet ORAL DAILY Qty = 90 Comments: Last Taken: 11/27/17 Time: 5:00 PM Metoprolol Succinate (Metoprolol Succinate) 25 MG TAB 1 Tablet ORAL DAILY Qty = 90 Comments: Last Taken: 11/28/17 Time: 9:00 AM Allopurinol (Allopurinol) 300 MG TABLET 1 Tablet ORAL DAILY Qty = 90 Comments: Last Taken: 11/28/17 Time: 9:00 AM Psyllium Husk (Metamucil) 3.4 GRAM/5.4 GRAM POWDER 1 Teaspoonful ORAL DAILY Comments: NOT GIVEN IN HOSPITAL Magnesium Oxide (Magnesium) 400 MG CAPSULE 1 Capsule ORAL DAILY Comments: NOT GIVEN IN HOSPITAL Amlodipine Besylate (Amlodipine Besylate) 5 MG TABLET 1 Tablet ORAL DAILY Qty = 90 Comments: Last Taken: 11/28/17 Time: 9:00 AM Pregabalin (Lyrica) 50 MG CAPSULE 1 Capsule ORAL Every night Qty = 270 Comments: Last Taken: 11/27/17 Time: 9:00 PM Aspirin (Aspirin*) 81 MG TAB.CHEW 1 Tablet ORAL DAILY Comments: Last Taken: 11/28/17 Time: 9:00 AM Vitamin B Complex (Vitamin B Complex) 1 EACH CAPSULE 1 Capsule ORAL DAILY Comments: NOT GIVEN IN HOSPITAL Cholecalciferol (Vitamin D3) 1,000 UNIT TABLET 2 Tablet ORAL DAILY Comments: NOT GIVEN IN HOSPITAL Cyanocobalamin (Vitamin B-12) 1,000 MCG TABLET 1 Tablet ORAL DAILY Comments: NOT GIVEN IN HOSPITAL Alpha Lipoic Acid (Alpha Lipoic Acid) 200 MG TABLET 600 Milligram ORAL DAILY Comments: NOT GIVEN IN HOSPITAL Glutamine (Endari) 5 GRAM POWD.PACK 1 Teaspoonful ORAL TWICE DAILY Comments: NOT GIVEN IN HOSPITAL Start taking the following new medications: Guaifenesin (Guaifenesin) 100 MG/5 ML LIQUID 10 Milliliters ORAL EVERY SIX HOURS NEEDED as needed for COUGH Qty = 1 No Refills Instructions: . Comments: NOT GIVEN IN HOSPITAL Benzonatate (Benzonatate) 100 MG CAPSULE 100 Milligram ORAL THREE TIMES DAILY as needed for cough Qty = 30 No Refills Instructions: . Comments: Last Taken: 11/28/17 Time: 9:00 AM Chloraseptic (Phenaseptic) 1.4 % SPRAY 2 [place] ON SKIN EVERY 2 HOURS NEEDED as needed for PAIN Qty = 1 No Refills Instructions: . Comments: NOT GIVEN IN HOSPITAL Tetracaine/Benzocaine/Butamben (Cetacaine [place]) 2 %-14 %-2 % (200 MG/SEC) SPRAY 1 Application On the skin TWICE DAILY as needed for PAIN Qty = 1 No Refills Comments: NOT GIVEN IN HOSPITAL Diclofenac Sodium (Voltaren) 1 % GEL..GRAM. 1 Gram On the skin 4 TIMES A DAY Qty = 1 No Refills Instructions: apply to affected area(s) Comments: Last Taken: 11/27/17 Time: 11:45 PM Sodium Chloride (Nasal [place]) 0.65 % SPRAY 1 [place] In the nose TWICE DAILY Qty = 1 No Refills Comments: NOT GIVEN IN HOSPITAL Azithromycin (Azithromycin) 250 MG TABLET 1 Dose Pack ORAL DAILY Qty = 3 No Refills Comments: NOT GIVEN IN HOSPITAL Prednisone (Prednisone) 10 MG TABLET 1 Tablet ORAL SEE INSTRUCTIONS Qty = 16 No Refills Instructions: TAKE 4 TABS FOR 1 DAY TAKE 3 TABS FOR 2 DAYS TAKE 2 TABS FOR 2 DAYS TAKE 1 TAB FOR 2DAYS Comments: Last Taken: 11/28/17 Time: 9:00 AM Copies To: Javad Worthy MD
[2017-11-27] MEDS ORDERED: BENZONATATE100 M1 PO (09:23)
[2017-11-27] MEDS ORDERED: GUAIFENESI100 MG/5 M PO (09:23)
[2017-11-27] MEDS ORDERED: PHENASEPTIC177 ML EXT (09:23)
--- NOTE | 2017-11-27 09:26 | Patient Discharge Instructions ---
Discharge Instructions General Discharge Information You were seen/treated for: Acute hypoxic resp failure due to Bronchitis Special Instructions: 1- Please follow up with your PCP in 1 week of discharge 2-please follow-up with PCP for solitary lung nodule 3- Please follow up with dance studio manager in 1 week of discharge Diet Continue normal diet: Yes Activity Full Activity/No Limits: Yes Acute Coronary Syndrome Inclusion Criteria At DC or during hospital stay patient has or had the following: ACS DIAGNOSIS No Discharge Core Measures Meds if any: Prescribed or Continued at Discharge Meds if any: NOT Prescribed or Continued at Discharge Congestive Heart Failure Inclusion Criteria At DC or during hospital stay patient has or had the following: CHF DIAGNOSIS No Discharge Core Measures Meds if any: Prescribed or Continued at Discharge Meds if any: NOT Prescribed or Continued at Discharge Cerebrovascular accident Inclusion Criteria At DC or during hospital stay patient has or had the following: CVA/TIA Diagnosis No Discharge Core Measures Meds if any: Prescribed or Continued at Discharge Meds if any: NOT Prescribed or Continued at Discharge Venous thromboembolism Inclusion Criteria VTE Diagnosis No VTE Type NONE VTE Confirmed by (Test) NONE Discharge Core Measures - Per Current guidelines, there needs to be overlap - treatment for the first 5 days of Warfarin therapy. - If discharged on Warfarin prior to 5 days of - overlap therapy, the patient will need to be - assessed for post discharge needs including - *Post discharge parental anticoagulation - *Warfarin and/or parental anticoagulation education - *Follow up date to check INR post discharge At least 5 days overlap therapy as Inpatient No Meds if any: Prescribed or Continued at Discharge Note: Overlap Therapy is Warfarin and Anticoagulant Meds if any: NOT Prescribed or Continued at Discharge
[2017-11-27 09:44] LABS: HEMATOCRIT 33.5 % (42-52)
[2017-11-27 14:03] VITALS: BP 122/64
[2017-11-27 22:54] VITALS: BP 137/72
[2017-11-28 07:38] VITALS: BP 114/71
[2017-11-28 08:34] LABS: ABSOLUTE BASOPHIL COUNT 0 /CUMM (0.0-0.2); ABSOLUTE EOSINOPHIL COUNT 0 /CUMM (0.0-0.7); ABSOLUTE GRANULOCYTE CT 7.3 /CUMM (1.4-6.5); ABSOLUTE LYMPH COUNT 0.8 /CUMM (1.2-3.4); ABSOLUTE MONOCYTE COUNT 1.1 /CUMM (0.10-0.60); BASOPHIL % 0.2 % (0.0-2.0); EOSINOPHIL % 0.1 % (0-5); GRANULOCYTE % 79.1 % (42.2-75.2); HEMATOCRIT 34.2 % (42-52); MEAN CORPUSCULAR HGB 30.8 PG (27.0-31.0); MEAN CORPUSCULAR HGB CONC 32.9 G/DL (33.0-37.0); MEAN CORPUSCULAR VOLUME 93.5 FL (80.0-94.0); MEAN PLATELET VOLUME 10.8 FL (7.4-10.4); PLATELET COUNT 203 /CUMM (130-400); RBC DISTRIBUTION WIDTH 19.2 % (11.5-14.5); RED BLOOD CELL CT 3.65 /CUMM (4.70-6.10); WHITE BLOOD CELL COUNT 9.2 /CUMM (4.8-10.8)
[2017-11-28 08:58] VITALS: BP 116/72
[2017-11-28] MEDS ORDERED: VOLTAREN100 GM TOP (11:17)
[2017-11-28] MEDS ORDERED: NASAL SPRAY44 ML NAS (11:17)
[2017-11-28] MEDS ORDERED: CETACAINE SPRAY20 GM TOP (11:17)
[2017-11-28] MEDS ORDERED: BENZONATATE100 M1 PO (11:19)
[2017-11-28] MEDS ORDERED: GUAIFENESI100 MG/5 M PO (11:19)
[2017-11-28] MEDS ORDERED: PHENASEPTIC177 ML EXT (11:19)
[2017-11-28] MEDS ORDERED: AZITHROMYCIN250 M1 PO (11:23)
[2017-11-28] MEDS ORDERED: PREDNISONE10 M2 PO (11:23)
--- NOTE | 2017-11-28 13:24 | PN- Att Addend ---
Attending Addendum Attending Brief Note 82M PMH polycythemia vera on Jakafi (Ruxolitinib, follows Dr. Min at [place]), HTN, gout presenting with several days of worsening cough, chest congestion, and sore throat, found to be hypoxic to 85% on room air in ED, with CT chest negative for pneumonia, negative influenza swab. Former smoker but quit >50 years ago. Cough persistent but improving, no sputum, no SOB with exertion, ambulated now 96% with exertion. Leg pain improved. AFVSS NAD NCAT Supple RRR CTAB Soft, NTND No c/c/e Pulses intact A&Ox3 no focal deficits Current Medications Sig/Kim Start time Last Medication Dose Route Stop Time Status Admin Acetaminophen 650 MG Q8P PRN 11/25 2044 AC PO Albuterol Sulfate 3 ML Q4P PRN 11/25 2130 AC INH Allopurinol 300 MG DAILY 11/26 1000 AC 11/28 PO 0858 Amlodipine Besylate 5 MG DAILY 11/26 1000 AC 11/28 PO 0858 Aspirin 81 MG DAILY 11/26 1000 AC 11/28 PO 0856 Azithromycin 500 MG 11/26 2230 AC 11/27 Dextrose/Water 250 ML IV 2044 Benzocaine/Butamben/ 1 [place] BID 11/27 1309 DC Tetracaine HCl TOP Benzocaine/Butamben/ 1 [place] BID 11/27 1226 AC Tetracaine HCl TOP Benzonatate 100 MG TID 11/26 1345 AC 11/28 PO 0857 Diclofenac Sodium 1 [place] ONCE ONE 11/27 2200 DC 11/27 TOP 11/27 2201 2343 Guaifenesin 10 ML Q6P PRN 11/25 2030 AC 11/25 PO 2136 Heparin Sodium 5,000 UNIT Q8 11/25 2200 AC 11/28 (Porcine) SC 0628 Ipratropium [place] 2.5 ML Q4 HRS NEEDED PRN 11/25 2130 AC INH Magnesium Oxide 400 MG DAILY 11/26 1000 AC 11/28 PO 0856 Metoprolol Succinate 25 MG DAILY 11/26 1000 AC 11/28 PO 0857 Phenol 2 SPRAY Q2P PRN 11/26 1345 AC EXT Pravastatin Sodium 40 MG 1700 11/26 1700 AC 11/27 PO 1652 Prednisone 10 MG DAILY 12/01 1000 AC PO 12/02 0959 Prednisone 20 MG DAILY 11/30 1000 AC PO 12/01 0959 Prednisone 30 MG DAILY 11/29 1000 AC PO 11/30 0959 Prednisone 40 MG DAILY 11/28 1000 AC 11/28 PO 11/29 0959 0856 Prednisone 50 MG DAILY 11/27 1000 DC 11/27 PO 11/28 0959 1100 Pregabalin 50 MG QPM 11/25 2200 AC 11/27 PO 2048 Simethicone 80 MG Q6P PRN 11/26 1745 AC 11/26 PO 1958 Sodium Chloride 2 SPRAY BID 11/28 1000 AC LAURA Laboratory Tests 11/28 0725 Chemistry Sodium (137 - 145 mmol/L) 142 Potassium (3.5 - 5.1 mmol/L) 3.9 Chloride (98 - 107 mmol/L) 103 Carbon Dioxide (22 - 30 mmol/L) 27 Anion Gap (5 - 16) 12 BUN (9 - 20 mg/dL) 26 H Creatinine (0.7 - 1.2 mg/dL) 1.0 Estimated GFR (>60 ml/min) > 60 BUN/Creatinine Ratio (7 - 25 %) 26.0 H Hematology CBC w Diff MAN DIFF ORDERED WBC (4.8 - 10.8 /CUMM) 9.2 RBC (4.70 - 6.10 /CUMM) 3.65 L Hgb (14.0 - 18.0 G/DL) 11.2 L Hct (42 - 52 %) 34.2 L MCV (80.0 - 94.0 FL) 93.5 MCH (27.0 - 31.0 PG) 30.8 MCHC (33.0 - 37.0 G/DL) 32.9 L RDW (11.5 - 14.5 %) 19.2 H Plt Count (130 - 400 /CUMM) 203 MPV (7.4 - 10.4 FL) 10.8 H Gran % (42.2 - 75.2 %) 79.1 H Lymphocytes % (20.5 - 51.1 %) 8.3 L Monocytes % (1.7 - 9.3 %) 12.3 H Eosinophils % (0 - 5 %) 0.1 Basophils % (0.0 - 2.0 %) 0.2 Absolute Granulocytes (1.4 - 6.5 /CUMM) 7.3 H Segmented Neutrophils (42.2 - 75.2 %) 77 H Band Neutrophils (0.0 - 5.0 %) 4 Absolute Lymphocytes (1.2 - 3.4 /CUMM) 0.8 L Lymphocytes (20.5 - 51.1 %) 8 L Monocytes (1.7 - 9.3 %) 8 Absolute Monocytes (0.10 - 0.60 /CUMM) 1.1 H Absolute Eosinophils (0.0 - 0.7 /CUMM) 0 Absolute Basophils (0.0 - 0.2 /CUMM) 0 Metamyelocytes (0.0 - 1.0 %) 3 H Nucleated RBCs (0.0 - 0.0 /100WBC) 2 H Platelet Estimate (ADEQUATE) ADEQUATE Polychromasia 1+ Poikilocytosis 1+ Anisocytosis 1+ Vital Signs Date Time Temp Pulse Resp B/P B/P Pulse O2 O2 Flow FiO2 Mean Ox Delivery Rate 11/28 0951 96 Room Air Room Air 11/28 0858 62 116/72 11/28 0857 62 116/72 11/28 0800 95 Room Air Room Air 11/28 0800 98 Room Air Room Air 11/28 0738 97.8 56 20 114/71 97 Room Air 11/27 2254 98.5 73 20 137/72 91 Room Air 11/27 1600 Room Air Room Air 11/27 1600 Room Air Room Air 11/27 1403 97.8 61 20 122/64 96 Nasal 2.0L Cannula Intake & Output 11/28 1600 11/28 0800 11/28 0000 Intake Total 540 780 Output Total Balance 540 780 Intake, IV 300 300 Intake, Oral 240 480 1. Acute bronchitis 2. Acute hypoxemic respiratory failure 3. 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
== END 2017-11-28 13:45 | DRG 189 ==
LOC: ERH 14:16 → 2NB 19:49 → ERHI 19:49 → 2NB 19:49 → ENRESERV 20:20 → ENTRNSPT 21:30 → EDTRNSPTSTS 21:40 → 2NB 21:51 → CMPTRNSPT 21:58 → ENPENDDIS 11-28 11:11 → 2NB 11-28 13:45
PROVIDERS: Physician Assistant Medical; Student in an Organized Health Care Education/Training Program
DX: J96.01 Acute respiratory failure with hypoxia (principal); G62.9 Polyneuropathy, unspecified; D45 Polycythemia vera; D64.89 Other specified anemias; N18.3 Chronic kidney disease, stage 3 (moderate); J20.9 Acute bronchitis, unspecified; I12.9 Hypertensive chronic kidney disease with stage 1 through stage 4 chronic kidney disease, or unspecified chronic kidney disease; R91.1 Solitary pulmonary nodule; T50.995A Adverse effect of other drugs, medicaments and biological substances, initial encounter; E78.5 Hyperlipidemia, unspecified; M10.9 Gout, unspecified; Z87.891 Personal history of nicotine dependence
CPT/HCPCS: 2NBP; 36415; 71046; 81003; 82436; 87040; 87449; 87450; 87804; 87804-59; 93005; 93010; 96374; J0456; J0696; J1644; J2930; J3490; J7060; J7512